=== PATIENT | male | born 1980 | race Hispanic/Latino ===

== ENCOUNTER 2020-08-17 14:34 | Emergency (ER) | payer SELFPAY ==
[2020-08-17] MEDS ORDERED: BUPIVACAINE 0.5% PF 10 ML VIAL ONE (15:31)
[2020-08-17] MEDS ORDERED: TETANUS & DIPHTHERIA TOX,ADULT 0.5 ML VIAL ONE (15:31)
--- NOTE | 2020-08-17 16:51 | RAD REPORT ---
EXAM DESCRIPTION: RAD - Hand Left 3 View - 08/17/2020 3:17 pm CLINICAL HISTORY: hand injury COMPARISON: None. FINDINGS: The left middle phalanx shows cortical disruption along the radial side. There is no fract ure of the middle phalanx. Least 1 small bone fragment is seen along the radial side of the fifth mid dle phalanx head. Detail is limited. Bandaging is in place. A retained foreign body is not suspected. Elsewhere in the left hand no acute bone or joint finding. No foreign bodies are seen. IMPRESSION: Posttraumatic bone loss without fracture involving the radial side of the left fifth mid dle phalanx as detailed.
--- NOTE | 2020-08-17 17:29 | P.HP ---
Certification for Inpatient Patient admitted to: Observation With expected LOS: <2 Midnights Patient will require the following post-hospital care: None Practitioner: I am a practitioner with admitting privileges, knowledge of patient current condition, hospital course, and medical plan of care. Services: Services provided to patient in accordance with Admission requirements found in Title 42 Section 412.3 of the Code of Federal Regulations Patient History Date of Service: 08/17/20 Reason for admission: Injury to left finger History of Present Illness: 40-year-old male with a past medical history admitted after missed a kidney injury in the Paras and left hand 5th digit finger while using any salt today. He denies any headache dizziness. Bleeding has resolved now. He has been admitted for plan debridement and washout in a.m. by surgery. He denies any other complaint now. No associated confusion, dizziness, chest pain. No prior excessive bleeding history Home medications list reviewed: No - Past Medical/Surgical History Has patient received pneumonia vaccine in the past: No Diabetic: No -: none Past Surgical History: Patient denies surgical history - Family History Family History: Reviewed- Non-Contributory - Social History Smoking Status: Never smoker Smoking therapy provided: No Patient receptive to therapy: No Alcohol use: No CD- Drugs: No Caffeine use: No Place of Residence: Home Review of Systems 10-point ROS is otherwise unremarkable Physical Examination - Physical Exam General: Alert, In no apparent distress, Oriented x3 HEENT: Atraumatic, Normocephalic, PERRLA Neck: 2+ carotid pulse no bruit, JVD not distended Respiratory: Clear to auscultation bilaterally, Normal air movement Cardiovascular: No edema, Normal pulses, Regular rate/rhythm, Normal S1 S2 Gastrointestinal: Normal bowel sounds, Soft and benign, Non-distended Musculoskeletal: No clubbing, No swelling, Other (left finger open fracture) Integumentary: No rashes, No breakdown, No significant lesion Neurological: Normal gait, Normal speech, Normal strength at 5/5 x4 extr External genitalia: No edema, No lesions Assessment and Plan - Advance Directives Does patient have a Living Will: No Does patient have a Durable POA for Healthcare: No - Code Status/Comfort Care Code Status Assessed: Yes Code Status: Full Code Physician Review: Patient Assessed, Agree with Above Assessment and Plan Physician Review Additional Text: #Left finger digit open fracture -, will admit to observation -Start Gentle IV fluid , start empirical antibiotics with Rocephin -Give tetanus toxoid shot today -Follow surgery for surgical intervention in a.m. Pain control as needed #Disposition-possible discharge in a.m. Time Spent Managing Pts Care (In Minutes): 60
[2020-08-17] MEDS ORDERED: CEFAZOLIN SODIUM 1 GM/VIAL ONE (18:50)
[2020-08-17] MEDS ORDERED: WATER FOR INJ,STERILE 10 ML ONE (18:51)
--- NOTE | 2020-08-17 19:12 | ER ---
Nurse's Notes [facility] Name: Camden Gustafson Age: 40 yrs Sex: Male : 1980 Arrival Date: 08/17/2020 Time: 14:35 Bed 16 Private MD: Diagnosis: Finger Fracture;Finger Laceration Presentation: 08/17 14:39 Chief complaint: Patient states: Lac on 5th digit of L hand by a hand saw 30 minutes ca1 CAN CRIMPER. Bleeding controlled. Coronavirus screen: Client denies travel out of the [place] in the last 14 days. At this time, the client does not indicate any symptoms associated with coronavirus-19. Ebola Screen: Patient negative for fever greater than or equal to 101.5 degrees Fahrenheit, and additional compatible Ebola Virus Disease symptoms Patient denies exposure to infectious person. Patient denies travel to an Ebola-affected area in the 21 days before illness onset. No symptoms or risks identified at this time. Initial Sepsis Screen: Does the patient meet any 2 criteria? No. Patient's initial sepsis screen is negative. Does the patient have a suspected source of infection? No. Patient's initial sepsis screen is negative. Risk Assessment: Do you want to hurt yourself or someone else? Patient reports no desire to harm self or others. Onset of symptoms was August 17, 2020. 14:39 Method Of Arrival: Ambulatory ca1 14:39 Acuity: ZEE 4 ca1 Historical: - Allergies: 14:42 No Known Allergies; ca1 - Home Meds: 14:42 None [Active]; ca1 - PMHx: 14:42 None; ca1 - PSHx: 14:42 None; ca1 - Immunization history:: Last tetanus immunization: unknown. - Social history:: Smoking status: Patient denies any tobacco usage or history of. Screenin:45 Abuse screen: Denies threats or abuse. Denies injuries from another. Nutritional sv screening: No deficits noted. Tuberculosis screening: No symptoms or risk factors identified. Fall Risk None identified. Assessment: 15:19 General: Appears in no apparent distress. comfortable, Behavior is calm, cooperative. vg1 Pain: Complains of pain in palmar aspect of distal phalanx of left little finger, palmar aspect of middle phalanx of left little finger and palmar aspect of proximal phalanx of left little finger Pain currently is 4 out of 10 on a pain scale. Pain began 1 hour ago. Neuro: Level of Consciousness is awake, alert, obeys commands, Oriented to person, place, time, situation. Cardiovascular: Patient's skin is warm and dry. Respiratory: Airway is patent Respiratory effort is even, unlabored. GI: No signs and/or symptoms were reported involving the gastrointestinal system. : No signs and/or symptoms were reported regarding the genitourinary system. EENT: No signs and/or symptoms were reported regarding the EENT system. Derm: Skin is healthy with good turgor. Musculoskeletal: Capillary refill < 3 seconds, in left fingers. Injury Description: Laceration sustained to palmar aspect of distal phalanx of left little finger, palmar aspect of middle phalanx of left little finger and palmar aspect of proximal phalanx of left little finger. 16:30 Reassessment: Patient appears in no apparent distress at this time. No changes from vg1 previously documented assessment. Patient and/or family updated on plan of care and expected duration. Pain level reassessed. Patient is alert, oriented x 3, equal unlabored respirations, skin warm/dry/pink. 18:51 Reassessment: Patient appears in no apparent distress at this time. No changes from vg1 previously documented assessment. Patient and/or family updated on plan of care and expected duration. Pain level reassessed. Patient is alert, oriented x 3, equal unlabored respirations, skin warm/dry/pink. 19:30 Reassessment: Patient appears in no apparent distress at this time. Patient and/or wh family updated on plan of care and expected duration. Pain level reassessed. Patient is alert, oriented x 3, equal unlabored respirations, skin warm/dry/pink. Vital Signs: 14:39 BP 147 / 101; Pulse 75; Resp 16; Temp 97.6(TE); Pulse Ox 100% on R/A; Weight 67.13 kg ca1 (R); Height 5 ft. 2 in. (160 cm) (R); Pain 2/10; 15:21 BP 145 / 96; Pulse 68; Resp 14; Pulse Ox 100% ; vg1 16:28 BP 141 / 96; Pulse 73; Pulse Ox 100% on R/A; mb4 18:51 BP 140 / 90; Pulse 70; Resp 16; Pulse Ox 99% on R/A; vg1 19:30 BP 138 / 84; Pulse 70; Resp 18; Pulse Ox 98% on R/A; wh 14:39 Body Mass Index 26.22 (67.13 kg, 160 cm) ca1 ED Course: 14:35 Patient arrived in ED. mr 14:41 Triage completed. ca1 14:42 Arm band placed on right wrist. ca1 14:43 Jonas Quan PA is PHCP. [facility] 14:43 Ayaz David MD is Attending Physician. [facility] 14:45 Patient has correct armband on for positive identification. Bed in low position. Call sv light in reach. Door closed. Head of bed elevated. 15:18 Terri Mendenhall, RN is Primary Nurse. vg1 15:45 Hand Left 3 View XRAY In Process Unspecified. EDMS 19:13 Primary Nurse role handed off by Terri Mendenhall, RN mw2 19:44 Janice Hirsch, RANJEET is Primary Nurse. 19:45 No provider procedures requiring assistance completed. Patient did not have IV access during this emergency room visit. Administered Medications: 15:17 Drug: Tetanus-Diphtheria Toxoid Adult 0.5 ml {Finance Insurance Manager: [employer]. Exp: vg1 08/27/2021. Lot #: [id number]. } Route: IM; Site: right deltoid; 17:50 Follow up: Response: No adverse reaction vg1 17:50 Drug: Marcaine (bupivacaine) (0.5 %) 10 ml Volume: 10 ml; Route: Infiltration; vg1 17:54 Not Given (Physician Discretion): Ancef (cefazolin) 1 grams IVPB once vg1 18:50 Drug: Ancef (cefazolin) 1 grams Route: IM; Site: right gluteus; vg1 19:45 Follow up: Response: No adverse reaction Outcome: 19:11 Discharge ordered by . [facility] 19:45 Discharged to home ambulatory, with friend. 19:45 Condition: stable 19:45 Discharge instructions given to patient, family, Instructed on discharge instructions, follow up and referral plans. no drinking with medication, no driving heavy equipment, medication usage, wound care, POC Demonstrated understanding of instructions, follow-up care, medications, wound care, splint care, POC Prescriptions given X 3. 19:46 Patient left the ED. Signatures: Dispatcher [employer] EDMS Maverick Seguraie, RN RN sv Jonas Quan PA PA jmm Zapata, Evita mr Torrey, Janice, RN RN Nuria Pedroza [facility] Char Smith [facility] Nenita Palmer, RN RN ca1 Terri Mendenhall, RN RN vg1
--- NOTE | 2020-08-17 19:12 | EDPHYS ---
Physician Documentation [facility] Name: Camden Gustafson Age: 40 yrs Sex: Male : 1980 Arrival Date: 08/17/2020 Time: 14:35 Bed 16 Private MD: ED Physician Ayaz David HPI: 08/17 14:50 This 40 yrs old Male presents to ER via Ambulatory with complaints of Finger jmm Laceration. 14:50 The patient or guardian reports injury, pain. Onset: The symptoms/episode jmm began/occurred acutely, just prior to arrival. Associated signs and symptoms: Pertinent negatives:. 18:59 Modifying factors: The symptoms are alleviated by nothing, the symptoms are aggravated jmm by nothing. This is a 40 year old male with no known chronic medical conditions that presents to the ED with complaints of left 5th finger injury. Patient was using a circular saw and injured his left 5th finger. Denies other injury. . Historical: - Allergies: 14:42 No Known Allergies; ca1 - Home Meds: 14:42 None [Active]; ca1 - PMHx: 14:42 None; ca1 - PSHx: 14:42 None; ca1 - Immunization history:: Last tetanus immunization: unknown. - Social history:: Smoking status: Patient denies any tobacco usage or history of. ROS: 18:59 Constitutional: Negative for fever, chills, and weight loss, Cardiovascular: Negative jmm for chest pain, palpitations, and edema, Respiratory: Negative for shortness of breath, cough, wheezing, and pleuritic chest pain. 18:59 Skin: Positive for laceration(s). 18:59 All other systems are negative. Exam: 18:59 Constitutional: This is a well developed, well nourished patient who is awake, alert, jmm and in no acute distress. Head/Face: atraumatic. Eyes: EOMI, no conjunctival erythema appreciated ENT: Moist Mucus Membranes Neck: Trachea midline, Supple Chest/axilla: Normal chest wall appearance and motion. Cardiovascular: Regular rate and rhythm. No edema appreciated Respiratory: Normal respirations, no respiratory distress appreciated Abdomen/GI: Non distended, soft Back: Normal ROM 18:59 Musculoskeletal/extremity: FROM appreciated to the left 5th finger, < 2 sec cap refill, strength against resistance appreciated on flexion and extension. . 18:59 Skin: 4 cm laceration noted to the left 5th finger. . 18:59 Neuro: Orientation: is normal, Mentation: is normal, Memory: is normal. 18:59 Psych: Behavior/mood is pleasant, cooperative. Vital Signs: 14:39 BP 147 / 101; Pulse 75; Resp 16; Temp 97.6(TE); Pulse Ox 100% on R/A; Weight 67.13 kg ca1 (R); Height 5 ft. 2 in. (160 cm) (R); Pain 2/10; 15:21 BP 145 / 96; Pulse 68; Resp 14; Pulse Ox 100% ; vg1 16:28 BP 141 / 96; Pulse 73; Pulse Ox 100% on R/A; mb4 18:51 BP 140 / 90; Pulse 70; Resp 16; Pulse Ox 99% on R/A; vg1 19:30 BP 138 / 84; Pulse 70; Resp 18; Pulse Ox 98% on R/A; wh 14:39 Body Mass Index 26.22 (67.13 kg, 160 cm) ca1 Laceration: 19:07 Wound Repair of 3cm ( 1.2in ) subcutaneous laceration to palmar aspect of middle jmm phalanx of left little finger. Distal neuro/vascular/tendon intact. Anesthesia: Local anesthetic administered with 3 mls of 0.5% marcaine. Wound prep: Extensive cleansing with betadine by me, Wound irrigation with saline by me. Skin closed with 5 4-0 Prolene using loosely approximated. Patient tolerated well. MDM: 14:50 Patient medically screened. [facility] 18:59 Data reviewed: vital signs, nurses notes. Counseling: I had a detailed discussion with [facility] the patient and/or guardian regarding: the historical points, exam findings, and any diagnostic results supporting the discharge/admit diagnosis, radiology results, the need for outpatient follow up, to return to the emergency department if symptoms worsen or persist or if there are any questions or concerns that arise at home. Refusal of service: The patient/guardian displays adequate decision making capability and despite a detailed discussion of alternatives, benefits, risks, and consequences refuses: Admission to the hospital for further work-up and treatment. ED course: I discussed the patient with Dr. Cervantes and Dr Chisholm whom accepted the patient for admission. patient refused admission. . 08/17 14:52 Order name: Hand Left 3 View XRAY; Complete Time: 16:54 [facility] Administered Medications: 15:17 Drug: Tetanus-Diphtheria Toxoid Adult 0.5 ml {Bottle Tester: [employer]. Exp: vg1 08/27/2021. Lot #: [id number]. } Route: IM; Site: right deltoid; 17:50 Follow up: Response: No adverse reaction vg1 17:50 Drug: Marcaine (bupivacaine) (0.5 %) 10 ml Volume: 10 ml; Route: Infiltration; vg1 17:54 Not Given (Physician Discretion): Ancef (cefazolin) 1 grams IVPB once vg1 18:50 Drug: Ancef (cefazolin) 1 grams Route: IM; Site: right gluteus; vg1 19:45 Follow up: Response: No adverse reaction Disposition: 08/18 06:41 Co-signature as Attending Physician, Ayaz David MD I agree with the assessment and kdr plan of care. Disposition: 08/17/20 19:11 Discharged to Home. Impression: Finger Fracture, Finger Laceration. - Condition is Stable. - Discharge Instructions: Finger Fracture, Laceration Care, Adult. - Prescriptions for Cephalexin 500 mg Oral Capsule - take 1 capsule by ORAL route every 6 hours for 10 days; 40 capsule. Ultracet 37.5- 325 mg Oral Tablet - take 1 tablet by ORAL route every 6 hours - for up to 5 days; do not exceed 8 tablets per day.; 12 tablet. Bactrim DS 800- 160 mg Oral Tablet - take 1 tablet by ORAL route every 12 hours for 10 days; 20 tablet. - Medication Reconciliation Form, Thank You Letter, Antibiotic Education, Prescription Opioid Use form. - Follow up: Private Physician; When: 2 - 3 days; Reason: Recheck today's complaints, Continuance of care, Re-evaluation by your physician. Signatures: Dispatcher [employer] Ayaz Benitez MD MD kdr Mickail, Joel, PA PA jmm Habalo, Winsy, RN RANJEET Nenita Palmer RN RN ca1 Garcia, Victoria RN RN vg1 Corrections: (The following items were deleted from the chart) 08/17 17:54 17:15 IV Saline Lock ordered. [facility] 17:56 17:16 CBC with Automated Diff ordered. [facility] 17:56 17:16 Comprehensive Metabolic Panel ordered. [facility] 19:46 19:11 08/17/2020 19:11 Discharged to Home. Impression: Finger Fracture; Finger wh Laceration. Condition is Stable. Forms are Medication Reconciliation Form, Thank You Letter, Antibiotic Education, Prescription Opioid Use. Follow up: Private Physician; When: 2 - 3 days; Reason: Recheck today's complaints, Continuance of care, Re-evaluation by your physician. [email or web address]
[2020-08-17 19:54] VITALS: TEMP 97.6
[2020-08-17 20:00] VITALS: BP 138/84; O2SAT 98
== END 2020-08-17 19:46 | disposition home or self-care (01) ==
LOC: ER 14:34
PROC: 0JQK0ZZ Repair Left Hand Subcutaneous Tissue and Fascia, Open Approach (ICD-10-PCS; principal; 2020-08-17)
DX: S62.627B Displaced fracture of middle phalanx of left little finger, initial encounter for open fracture (principal); W45.8XXA Other foreign body or object entering through skin, initial encounter; W29.8XXA Contact with other powered hand tools and household machinery, initial encounter; Z23 Encounter for immunization
CPT/HCPCS: 90471; 90714; 96372; 99283; J0690